=== PATIENT | female | born 1970 | race African-American/Black ===

== ENCOUNTER 2018-04-07 13:58 | Emergency (ER) | payer BC ==
[~2018-04-07] VITALS: Ht 165.1 cm; Wt 114.0 kg
[2018-04-07 14:03] VITALS: BP 142/71; PULSE 89; RESP 16; O2SAT 96
[2018-04-07] MEDS ORDERED: MELO15TA20 PO (14:03)
[2018-04-07] MEDS ORDERED: EMPA1TAB3 PO (14:03)
[2018-04-07] MEDS ORDERED: SODIUM CHLOR 0.9% 1000 ML INJ 1,000 ML IV SCH (14:21)
[2018-04-07] MEDS ORDERED: SODIUM CHLORIDE 0.9% FLUSH 10 ML FLUSH IV FLUSH PRN (14:30)
[2018-04-07 14:34] VITALS: O2SAT 97
--- NOTE | 2018-04-07 15:03 | RADRPT ---
EXAM DATE: 04/07/2018 2:51 PM EDT AGE/SEX: 47 years / Female INDICATIONS: Right hip pain; no known injury. CLINICAL DATA: This is the patient's initial encounter. Patient reports that signs and symptoms have been present for 1 month and indicates a pain score of 10/10. MEDICAL/SURGICAL HISTORY: Arthritis. Diabetes mellitus type II. Hysterectomy. COMPARISON: No prior [place] exams available for comparison. FINDINGS: Bony structures are intact and in normal alignment. Joints are intact without dislocation or signifi cant arthropathy. Osseous density is normal. Soft tissues are unremarkable. No radiopaque foreign bodies seen. CONCLUSION: Unremarkable exam for patient's age. Electronically signed by: Srikanth Hernandez MD 04/07/2018 3:01 PM EDT
[2018-04-07 15:05] LABS: BASOPHIL % 0.4 % (0.0-2.0); EOSINOPHIL # 0.1 TH/MM3 (0-0.4); EOSINOPHIL % 1.6 % (0.0-4.0); HEMATOCRIT 34.1 % (35.0-46.0); HEMOGLOBIN 11.1 GM/DL (11.6-15.3); LYMPH % 28.3 % (9.0-44.0); LYMPHOCYTE # 2.3 TH/MM3 (1.0-4.8); MEAN CELL VOLUME 88.3 FL (80.0-100.0); MEAN CORPUSCULAR HEMOGLOBIN 28.8 PG (27.0-34.0); MEAN CORPUSCULAR HGB CONC 32.6 % (32.0-36.0); MEAN PLATELET VOLUME 8.8 FL (7.0-11.0); MONOCYTE # 0.6 TH/MM3 (0-0.9); NEUT % 62.7 % (16.0-70.0); PLATELET COUNT 171 TH/MM3 (150-450); RED BLOOD COUNT 3.87 MIL/MM3 (4.00-5.30); RED CELL DISTRIBUTION WIDTH 15.7 % (11.6-17.2)
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
[2018-04-07] MEDS ORDERED: MORPHINE SULFATE 4 MG/ML INJ IV PUSH ONE (15:15)
[2018-04-07 15:29] LABS: PROTHROMBIN TIME - PATIENT 10.5 SEC (9.8-11.6)
[2018-04-07 15:36] LABS: ALBUMIN 3.2 GM/DL (3.4-5.0); ALT (GPT) 16 U/L (10-53); AST (GOT) 12 U/L (15-37); BICARBONATE 27.1 MEQ/L (21.0-32.0); BLOOD UREA NITROGEN 17 MG/DL (7-18); CALCIUM 8.5 MG/DL (8.5-10.1); CHLORIDE 107 MEQ/L (98-107); CREATININE 0.91 MG/DL (0.50-1.00); GLOMERULAR FILTRATION RATE 66 ML/MIN (>89); GLUCOSE,RANDOM 100 MG/DL (74-106); SODIUM (NA) 140 MEQ/L (136-145)
[2018-04-07 15:37] LABS: ALKALINE PHOSPHATASE 68 U/L (45-117); TOTAL BILIRUBIN ADULT 0.2 MG/DL (0.2-1.0); TOTAL PROTEIN 7.7 GM/DL (6.4-8.2)
[2018-04-07] MEDS ORDERED: LORazepam 2 MG/ML VIAL IV PUSH ONE (15:45)
[2018-04-07 16:45] VITALS: BP 138/73; PULSE 81; RESP 18; O2SAT 98
--- NOTE | 2018-04-07 17:05 | RADRPT ---
EXAM DATE: 04/07/2018 4:58 PM EDT AGE/SEX: 47 years / Female INDICATIONS: . Bilateral leg pain, weakness, cramping. She states that the symptoms are worse on the right side. CLINICAL DATA: This is the patient's initial encounter. Patient reports that signs and symptoms have been present for 3 weeks and indicates a pain score of 10/10. MEDICAL/SURGICAL HISTORY: Diabetes mellitus type II. Hysterectomy. COMPARISON: No prior [place] exams available for comparison. TECHNIQUE: Multiplanar, multisequence MRI examination of the cervical spine was performed without co ntrast. FINDINGS: Vertebrae: Normal vertebral body height. Homogeneous marrow signal. Alignment: Normal. Cord: Normal configuration and signal. Post Fossa: The cerebellar tonsils are normal in position. C2-C3: The thecal sac has a normal configuration. There is no evidence of disc herniation or spinal canal stenosis. The neural foramina are patent bilaterally. C3-C4: The thecal sac has a normal configuration. There is no evidence of disc herniation or spinal canal stenosis. The neural foramina are patent bilaterally. C4-C5: The thecal sac has a normal configuration. There is no evidence of disc herniation or spinal canal stenosis. The neural foramina are patent bilaterally. C5-C6: The thecal sac has a normal configuration. There is no evidence of disc herniation or spinal canal stenosis. The neural foramina are patent bilaterally. C6-C7: The thecal sac has a normal configuration. There is no evidence of disc herniation or spinal canal stenosis. The neural foramina are patent bilaterally. C7-T1: No epidural impressions seen. CONCLUSION: Negative exam. No significant degenerative disc disease. Spinal canal and neural foramina are patent throughout without cord or nerve root compromise to explain current clinical symptoms. Electronically signed by: Pal Proctor MD 04/07/2018 5:04 PM EDT
--- NOTE | 2018-04-07 17:13 | RADRPT ---
EXAM DATE: 04/07/2018 5:02 PM EDT AGE/SEX: 47 years / Female INDICATIONS: . Bilateral leg pain, weakness, cramping. She states that the symptoms are worse on the right side. CLINICAL DATA: This is the patient's initial encounter. Patient reports that signs and symptoms have been present for 3 weeks and indicates a pain score of 10/10. MEDICAL/SURGICAL HISTORY: Diabetes mellitus type II. Hysterectomy. COMPARISON: No prior [place] exams available for comparison. TECHNIQUE: Multiplanar, multisequence MRI of the lumbar spine was performed without contrast. Patie nt was scanned in a sitting position; neutral, flexion, and extension scans were performed in the sa gittal plane. FINDINGS: Vertebra: Lumbar vertebral bodies are normal in height. There are mild type II endplate changes seen at the L5-S1 level. Normal alignment. Conus: Normal level and configuration. T12-L1: The thecal sac has a normal diameter. No evidence of disc bulge or protrusion. The neural foramina are patent bilaterally. L1-L2: The thecal sac has a normal diameter. No evidence of disc bulge or protrusion. The neural foramina are patent bilaterally. L2-L3: The thecal sac has a normal diameter. No evidence of disc bulge or protrusion. The neural foramina are patent bilaterally. L3-L4: The thecal sac has a normal diameter. No evidence of disc bulge or protrusion. The neural foramina are patent bilaterally. L4-L5: The thecal sac has a normal diameter. No evidence of disc bulge or protrusion. The neural foramina are patent bilaterally. L5-S1: The disc demonstrates decreased height and decreased signal. There is mild to moderate diffus e disc bulge. The disc bulge does abut the S1 nerve roots at the lateral recess levels. Significant n arrowing of the thecal sac overall is not seen. There is mild facet hypertrophy. The disc bulge does cause mild narrowing of the neural foramina bilaterally. CONCLUSION: Mild to moderate disc bulge at the L5-S1 level causing some narrowing of the neural foramina and to a lesser degree the lateral recess regions. Electronically signed by: Tito Erickson MD 04/07/2018 5:12 PM EDT
--- NOTE | 2018-04-07 17:19 | RADRPT ---
EXAM DATE: 04/07/2018 4:47 PM EDT AGE/SEX: 47 years / Female INDICATIONS: . Bilateral leg pain, weakness, cramping. She states that the symptoms are worse on the right side. CLINICAL DATA: This is the patient's initial encounter. Patient reports that signs and symptoms have been present for 3 weeks and indicates a pain score of 10/10. MEDICAL/SURGICAL HISTORY: Diabetes mellitus type II. Hysterectomy. COMPARISON: No prior [place] exams available for comparison. TECHNIQUE: Multiplanar, multisequence MRI of the thoracic spine was performed. FINDINGS: Vertebrae: Normal vertebral body height. Homogeneous marrow signal. Alignment: Normal. Cord: Normal position and configuration. T1-T2: The thecal sac has a normal diameter. No evidence of disc bulge or protrusion. T2-T3: The thecal sac has a normal diameter. No evidence of disc bulge or protrusion. T3-T4: The thecal sac has a normal diameter. No evidence of disc bulge or protrusion. T4-T5: The thecal sac has a normal diameter. No evidence of disc bulge or protrusion. T5-T6: There is a mild left lateral recess disc protrusion without significant stenosis. T6-T7: The thecal sac has a normal diameter. No evidence of disc bulge or protrusion. T7-T8: The thecal sac has a normal diameter. No evidence of disc bulge or protrusion. T8-T9: The thecal sac has a normal diameter. No evidence of disc bulge or protrusion. T9-T10: The thecal sac has a normal diameter. No evidence of disc bulge or protrusion. T10-T11: The thecal sac has a normal diameter. No evidence of disc bulge or protrusion. T11-T12: The thecal sac has a normal diameter. No evidence of disc bulge or protrusion. T12-L1: The thecal sac has a normal diameter. No evidence of disc bulge or protrusion. CONCLUSION: Mild left lateral recess disc protrusion at the T5-T6 level without significant stenosis. Electronically signed by: Tito Erickson MD 04/07/2018 5:17 PM EDT
--- NOTE | 2018-04-07 17:43 | PD ---
Physical Exam Date Seen by Provider: April 07, 2018 Time Seen by Provider: 14:00 Narrative I, Dr. Jackson, have reviewed the advance practice practitioner's documentation and am in agreement, met with the patient face to face, made the diagnosis, and the medical decision making was done by me. *My assessment and Findings: Patient seen and evaluated with PA, please see PA notes for further details. She is coming in with ongoing problems with her back , with radiation down her legs, and is complaining of urinary urgency as well. She states that she has been seen by her primary care doctor, Dr. Soares, who has wanted an MRI on her and had talked about referral to pain management. Patient currently denies any fevers or IV drug use. She denies any new injuries. MRIs were ordered for further evaluation considering that she is having these urinary symptoms as well as pain going down her legs. Laboratory Tests Test 04/07/18 14:30 Red Blood Count 3.87 MIL/MM3 (4.00-5.30) Hemoglobin 11.1 GM/DL (11.6-15.3) Hematocrit 34.1 % (35.0-46.0) Albumin 3.2 GM/DL (3.4-5.0) Aspartate Amino Transf (AST/SGOT) 12 U/L (15-37) Estimat Glomerular Filtration Rate 66 ML/MIN (>89) MRIs did not show any signs of acute cauda equina or mass impingement. She does have several areas where she has herniated disc which are mild to moderate , but does not appear to be critically stenosing. At this point, my plan would be to release her with follow-up to pain management, give her pain control, and have her follow-up with neurosurgery and primary care doctor since she may need further treatment for this issue. Return for any worsening in symptoms as needed. The plan has been discussed with her and she states understanding. Data Data Last Documented VS Vital Signs Date Time Temp Pulse Resp B/P (MAP) Pulse Ox O2 Delivery O2 Flow Rate FiO2 04/07/18 16:45 81 18 138/73 (94) 98 Room Air Orders Orders Mri C Spine W/O Contrast (04/07/18 14:21) Mri T Spine W/O Contrast (04/07/18 14:21) Mri L Spine W/O Contrast (04/07/18 14:21) Complete Blood Count With Diff (04/07/18 14:21) Comprehensive Metabolic Panel (04/07/18 14:21) Prothrombin Time / Inr (Pt) (04/07/18 14:21) Act Partial Throm Time (Ptt) (04/07/18 14:21) Urinalysis - C+S If Indicated (04/07/18 14:21) Iv Access Insert/Monitor (04/07/18 14:21) Ecg Monitoring (04/07/18 14:21) Oximetry (04/07/18 14:21) Sodium Chlor 0.9% 1000 Ml Inj (Ns 1000 M (04/07/18 14:21) Sodium Chloride 0.9% Flush (Ns Flush) (04/07/18 14:30) Hip, Uni(Ap&Lat) Wo Ap Pelvis (04/07/18 14:21) Ed Urine Pregnancytest Poc (04/07/18 14:21) Morphine Inj (Morphine Inj) (04/07/18 15:15) Lorazepam Inj (Ativan Inj) (04/07/18 15:45) Labs Laboratory Tests Test 04/07/18 14:30 04/07/18 18:35 White Blood Count 8.0 TH/MM3 Red Blood Count 3.87 MIL/MM3 Hemoglobin 11.1 GM/DL Hematocrit 34.1 % Mean Corpuscular Volume 88.3 FL Mean Corpuscular Hemoglobin 28.8 PG Mean Corpuscular Hemoglobin Concent 32.6 % Red Cell Distribution Width 15.7 % Platelet Count 171 TH/MM3 Mean Platelet Volume 8.8 FL Neutrophils (%) (Auto) 62.7 % Lymphocytes (%) (Auto) 28.3 % Monocytes (%) (Auto) 7.0 % Eosinophils (%) (Auto) 1.6 % Basophils (%) (Auto) 0.4 % Neutrophils # (Auto) 5.0 TH/MM3 Lymphocytes # (Auto) 2.3 TH/MM3 Monocytes # (Auto) 0.6 TH/MM3 Eosinophils # (Auto) 0.1 TH/MM3 Basophils # (Auto) 0.0 TH/MM3 CBC Comment DIFF FINAL Differential Comment Prothrombin Time 10.5 SEC Prothromb Time International Ratio 1.0 RATIO Activated Partial Thromboplast Time 29.4 SEC Blood Urea Nitrogen 17 MG/DL Creatinine 0.91 MG/DL Random Glucose 100 MG/DL Total Protein 7.7 GM/DL Albumin 3.2 GM/DL Calcium Level 8.5 MG/DL Alkaline Phosphatase 68 U/L Aspartate Amino Transf (AST/SGOT) 12 U/L Alanine Aminotransferase (ALT/SGPT) 16 U/L Total Bilirubin 0.2 MG/DL Sodium Level 140 MEQ/L Potassium Level 3.8 MEQ/L Chloride Level 107 MEQ/L Carbon Dioxide Level 27.1 MEQ/L Anion Gap 6 MEQ/L Estimat Glomerular Filtration Rate 66 ML/MIN [facility] Medical Record Reviewed: Yes Supervised Visit with KENISHA: Yes Diagnosis Primary Impression: Acute exacerbation of chronic low back pain Additional Impression: Herniated disc Disposition: 01 DISCHARGE HOME Condition: Stable Jone Jackson MD April 07, 2018 17:43
[2018-04-07 18:52] VITALS: BP 143/76; PULSE 79; RESP 17; O2SAT 98
[2018-04-07] MEDS ORDERED: CYCL10TA PO (18:53)
[2018-04-07 19:11] LABS: BILIRUBIN, URINE NEG (NEG); BLOOD, URINE SMALL (NEG); GLUCOSE,URINE 1000 mg/dL (NEG); KETONE, URINE NEG (NEG); NITRITE,URINE NEG (NEG); SQUAMOUS EPITHELIAL CELL URINE 2 /hpf (0-5); URINE COLOR YELLOW (YELLW/STRAW); URINE LEUKOCYTE ESTERASE NEG (NEG)
[2018-04-07] MEDS ORDERED: NORC5TAB PO (19:23)
== END 2018-04-07 20:00 | disposition home or self-care (01) ==
LOC: NEPE 13:58
DX: M51.24 Other intervertebral disc displacement, thoracic region (principal); G89.29 Other chronic pain; M79.604 Pain in right leg; M79.605 Pain in left leg
CPT/HCPCS: 72141; 72146; 72148; 73502; 80053; 81001; 84703; 85025; 85610; 85730; 96361; 96374; 96375; 99285; J2060; J2270; J7030